=== PATIENT | male | born 1970 | race Caucasian/White ===

== ENCOUNTER 2017-01-31 13:08 | Emergency (ER) ==
[2017-01-31 13:12] VITALS: BP 132/82; TEMP 98.4; BMI 26.6
[2017-01-31] MEDS ORDERED: TETANUS DIPHTHERIA TOXOIDS IM ONE (13:21)
[2017-01-31] MEDS ORDERED: NORCO 7.5-325 PO STA (13:52)
--- NOTE | 2017-01-31 13:55 | ED.PDOC ---
General ED Provider: Dr. WAYNE CHAIDEZ-ER Chief Complaint: Fall Stated Complaint: i fell and cut my leg and i hurt my hand Time Seen by Physician: 13:10 Mode of Arrival: Walk-In Information Source: Patient Exam Limitations: No limitations Primary Care Provider: MARGARET BALTAZAR Nursing and Triage Documentation Reviewed and Agree: Yes Musculoskeletal Complaint Exam - Hand/Wrist Complaint/Exam Location of Pain: Reports: Right, Digit #4, Digit #5 Onset/Duration: 24hrs Symptoms Are: Still present Onset of Pain: Reports: Immediate Initial Severity: Mild Current Severity: Mild Location: Reports: Discrete (right 5th digit and left holland laceration) Character: Reports: Dull, Aching Alleviating: Reports: Rest Aggravating: Reports: Movement Associated Signs and Symptoms: Reports: Swelling, Bruising. Denies: Redness, Fever, Weakness, Numbness, Tingling Dominant Hand: Right Hand/Wrist Findings: Present: Swelling, Ecchymosis Tenderness: Present: Phalanx Compartment Syndrome Risk Factors: Present: Pain Differential Diagnoses: Infection, Closed Fracture Review of Systems - Review Of Systems Constitutional: Reports: No symptoms Eyes: Reports: No symptoms Ears, Nose, Mouth, Throat: Reports: No symptoms Respiratory: Reports: No symptoms Cardiac: Reports: No symptoms GI: Reports: No symptoms : Reports: No symptoms Musculoskeletal: Reports: Joint swelling, Muscle pain Skin: Reports: No symptoms Neurological: Reports: No symptoms Endocrine: Reports: No symptoms Hematologic/Lymphatic: Reports: No symptoms All Other Systems: Reviewed and Negative Past Medical History - Past Medical History Previously Healthy: Yes Endocrine: Reports: Unknown Cardiovascular: Reports: Unknown Respiratory: Reports: Unknown Hematological: Reports: Unknown Gastrointestinal: Reports: Unknown Genitourinary: Reports: Unknown Neuro/Psych: Reports: Unknown Musculoskeletal: Reports: Unknown Cancer: Reports: Unknown - Surgical History General Surgical History: Reports: Unknown - Family History Family History: Reports: Unknown - Social History Smoking Status: Current every day smoker, Heavy tobacco smoker Hx Substance Use: No Alcohol Screening: None Lives: With family - Immunizations Tetanus Shot up to Date: No Physical Exam - Physical Exam Appearance: Well-appearing, No pain distress, Well-nourished Pain Distress: Mild Eyes: CIRA, EOMI, Conjunctiva clear ENT: Ears normal, Nose normal, Oropharynx normal Neck: Supple Respiratory: Airway patent, Breath sounds clear, Breath sounds equal, Respirations nonlabored Cardiovascular: RRR, Pulses normal, No rub, No murmur GI/: Soft, Nontender, No masses, Bowel sounds normal, No Organomegaly Musculoskeletal: Limited ROM Skin: Warm Neurological: Sensation intact Psychiatric: Affect appropriate, Mood appropriate Interpretation - Radiology Interpretation Radiology Interpretation By: ED Physician Radiology Results: Positive Procedures - Laceration/Wound Repair No standard instances Wound Description: Linear Wound Length (cm): 3cm left holland Wound Explored: Clean Wound Irrigated: Yes Wound Prep: Hibiclens Wound Repaired With: Steri-strips Layer Closure?: No Sterile Dressing Applied?: Yes Splint Applied?: Yes (right finger--alum splint applied by nurse) Re-Evaluation - Re-Evaluation Time of Re-Evaluation: 13:57 Status: Improved Vital Signs Stable: Yes Pain Level: 2 Appearance: NAD Lungs: Clear Skin: Warm and Dry Neuro: Alert and Oriented X3 CV: RRR Critical Care Note - Critical Care Note Total Time (mins): 0 Course - Course Orders, Labs, Meds: Orders Category Date Time Status Splint [ED SPLINT APPLICATION] .ONCE EMERGENCY 01/31/17 13:52 Active Wound care [ED WOUND CARE] .ONCE EMERGENCY 01/31/17 13:22 Active Hydrocodone Bit/Acetaminophen [[place] 7.5-325] MEDS 01/31/17 13:52 Stat 1 tab PO ONCE STA Tetanus, Diphtheria Tox,Adult [Tetanus Diphtheria MEDS 01/31/17 13:21 Discontinued Toxoids] 0.5 ml IM .ONCE ONE FINGER(S) RIGHT MIN 2V Stat RADS 01/31/17 13:19 Taken HAND, RIGHT 3 VIEWS Stat RADS 01/31/17 13:19 Taken TIBIA/FIBULA, LEFT 2 VIEWS Stat RADS 01/31/17 13:19 Taken Medications Generic Name Dose Route Start Last Admin Trade Name Freq PRN Reason Stop Dose Admin Acetaminophen/Hydrocodone Bitart 1 tab 01/31/17 13:52 [place] 7.5-325 PO 01/31/17 13:53 ONCE STA Discontinued Medications Generic Name Dose Route Start Last Admin Trade Name Freq PRN Reason Stop Dose Admin Tetanus/Diphtheria Toxoids 0.5 ml 01/31/17 13:21 01/31/17 13:39 Tetanus Diphtheria Toxoids IM 01/31/17 13:22 0.5 ml .ONCE ONE Administration Vital Signs: Temp Pulse Resp BP Pulse Ox 01/31/17 13:09 98.4 F 76 16 132/82 97 Departure - Departure Time of Disposition: 13:57 Disposition: HOME SELF-CARE Discharge Problem: Proximal phalanx fracture of finger Qualifiers: Encounter type: initial encounter Finger: little finger Fracture type: closed Fracture alignment: nondisplaced Laterality: right Qualifier Code: (S62.646A) Nondisplaced fracture of proximal phalanx of right little finger, initial encounter for closed fracture Laceration of leg Qualifiers: Encounter type: initial encounter Laterality: left Qualifier Code: (S81.812A) Laceration without foreign body, left lower leg, initial encounter Instructions: Finger Fracture (ED), Laceration (ED), Laceration Without Closure (ED) Condition: Good Pt referred to PMD for follow-up: Yes Additional Instructions: stay in splint--norco 7.5mg q 4hrs prn pain #15--[facility] with [facility] of xrays--keep left leg wound clean and dry--keflex 500mg bid x 7days--wash with soap and water--do not apply peroxide Allergies/Adverse Reactions: Allergies Iodinated Contrast- Oral and IV Dye Adverse Reaction (Verified 01/31/17 13:12) Home Medications: Ambulatory Orders Hydrocodone Bit/Acetaminophen [[place] 7.5-325] 1 tab PO BID 01/31/17 Disposition Discussed With: Patient, Family
--- NOTE | 2017-01-31 14:01 | DI ---
Exam: Three x-rays of the right hand. Comparison: None available. Reason for exam: Fall. FINDINGS: There is a comminuted fracture of the right fifth proximal phalanx. Anatomic alignment i s relatively well maintained. Soft tissue swelling is seen adjacent the fracture site. No other fr acture or dislocation is seen. Impression: Comminuted fracture of the right proximal fifth phalanx. Report faxed at [phone] hours on 01/31/2017
--- NOTE | 2017-01-31 14:07 | DI ---
Exam: Four x-rays of the right fingers Chris: Hand x-ray performed on the same day. Reason for exam: Fall. FINDINGS: There is a minimally displaced comminuted fracture of the right fifth proximal phalanx. No other fracture or dislocation is seen. The anatomic alignment is relatively well maintained. Impression: Minimally displaced comminuted fracture of the right proximal fifth phalanx. Report faxed at [phone] hours on 01/31/2017.
--- NOTE | 2017-01-31 14:14 | DI ---
Exam: Three x-rays of the left lower extremity. Comparison: None available. Reason for exam: Fall. FINDINGS: No acute fracture or malalignment. The cortex of the left tibia and fibula appear intact . There is no unexplained calcific soft tissue densities or radiopaque retained foreign bodies. Impression: No acute fracture or dislocation is seen within the left tibia or fibula.
== END 2017-01-31 14:06 | disposition home or self-care (01) ==
LOC: ED 13:08
DX: S62.646A Nondisplaced fracture of proximal phalanx of right little finger, initial encounter for closed fracture (principal); S81.812A Laceration without foreign body, left lower leg, initial encounter; W19.XXXA Unspecified fall, initial encounter; F17.210 Nicotine dependence, cigarettes, uncomplicated
CPT/HCPCS: 90471; 99283

== ENCOUNTER 2017-05-08 08:59 | Day surgery (SDC) ==
[2017-05-08] MEDS: AK-DILATE 10% OPTH SOL OP PRN ×3 (11:30→11:40)
[2017-05-08] MEDS: TETRACAINE 0.5% UNIT-DOSE OP PRN ×3 (11:30→12:00)
[2017-05-08] MEDS: KETOROLAC 0.5% OPTH SOL OP PRN ×3 (11:30→12:00)
[2017-05-08] MEDS: CYCLOGYL 2% OPTH OP PRN ×3 (11:30→11:40)
[2017-05-08] MEDS ORDERED: LIDOCAINE 1% 20 ML MDV ID ONE (11:56)
[2017-05-08] MEDS ORDERED: BETADINE OPTH PREP OP ONE (12:14)
[2017-05-08] MEDS ORDERED: VERSED ONE (12:15)
[2017-05-08] MEDS ORDERED: TIMOPTIC 0.5% OPTH OP ONE (12:41)
[2017-05-08] MEDS ORDERED: PRED FORTE 1% OPTH SOL OP ONE (12:41)
[2017-05-08] MEDS ORDERED: OCUFEN 0.03% OPTH SOL OP ONE (12:41)
[2017-05-08] MEDS ORDERED: DIAMOX PO ONE (13:21)
[2017-05-08 13:42] VITALS: BP 138/92; TEMP 97.9
--- NOTE | 2017-05-09 08:53 | OP ---
PREOPERATIVE DIAGNOSIS: RIGHT EYE. POSTOPERATIVE DIAGNOSIS: SAME. OPERATION PHACOEMULSIFICATION ASPIRATION OF CATARACT RIGHT EYE. PLACEMENT OF POSTERIOR CHAMBER LENS. PHACO TIME 30.40 SECONDS AT 11% POWER. LENS MODEL TECPETRA [id number]. DIOPTER +18.0D. TECHNIQUE: CLEAR CORNEA. ANESTHESIA: TOPICAL ANESTHESIA W/ANESTHESIA MONITORING. OPERATIVE REPORT: Topical anesthesia consisting of Tetracaine was applied to the cornea and Xylocaine Methyl Paraben free of MFP was injected intracamerally into the anterior chamber. The patient was then brought into the operating room , prepped and draped in the usual ophthalmic manner. A lid speculum was placed and the operating microscope was used. A paracentesis was made at the 3 o' clock position. A clear corneal incision was made just out to the limbus. The anterior chamber was entered just inside the clear cornea. Viscoelastic was injected into the anterior chamber. A capsulotomy was performed with a bent # 27 gauge needle. Phacoemulsification was then performed in the posterior chamber. After completion of the phacoemulsification, residual cortical material was aspirated with the irrigation-aspiration system. The posterior capsule was polished. Viscoelastic was injected into the anterior and posterior chambers to inflate the capsular bag. Lens were placed via an Unfolder system and stabilized in the bag. Viscoelastic was removed from the anterior chamber. The wound was checked for any leakage. The four sponges were removed from the fornix. Topical antibiotic steroid and nonsteroidal drops were also applied to the cornea. A Tai shield was applied. The patient left the operating room in good condition without any complications. INTRAOPERATIVE MEDICATIONS: Xylocaine Methyl Paraben Free MPF MTDD
== END 2017-05-08 13:47 | disposition home or self-care (01) ==
LOC: SURG 08:59
PROVIDERS: ATTEND Ophthalmology
DX: H25.13 Age-related nuclear cataract, bilateral (principal)

== ENCOUNTER 2017-06-26 17:46 | Emergency (ER) ==
[2017-06-26 17:52] VITALS: BP 174/101; TEMP 98.9; BMI 27.1
--- NOTE | 2017-06-26 18:19 | ED.PDOC ---
General ED Provider: Dr. FORREST CORTEZ Chief Complaint: Finger Pain/Injury Stated Complaint: BOTH TUMBS AND WRIST HURT AFTER NEAR FALL Time Seen by Physician: 18:18 (TRIED TO PREVENT A A FALL WHILE ON A LADDER DID NOT FALL) Mode of Arrival: Walk-In Information Source: Patient Exam Limitations: No limitations Nursing and Triage Documentation Reviewed and Agree: Yes (SEEN WITH [facility] AT ALL TIMES ) Musculoskeletal Complaint Exam - Hand/Wrist Complaint/Exam Location of Pain: Reports: Right, Left, Hand, Wrist, Digit #1 Mechanism of Injury: Reports: Trauma (PULLING TYPE FORCE) Onset/Duration: TODAY Symptoms Are: Still present Initial Severity: Mild Current Severity: Mild Location: Reports: Discrete Character: Reports: Aching Alleviating: Reports: Rest Aggravating: Reports: Movement Associated Signs and Symptoms: Denies: Swelling, Redness, Bruising, Fever, Weakness, Numbness, Tingling Dominant Hand: Right Related Surgical History: Reports: None Hand/Wrist Findings: Absent: Swelling, Ecchymosis, Abnormal contour, Rotation, Ligamentous instability, Tinel's Sign, Phalen's Sign, Laceration Tenderness: Present: Radius, Ulna, Metacarpal, Phalanx Compartment Syndrome Risk Factors: Present: Pain Differential Diagnoses: Closed Fracture, Sprain, Strain Review of Systems - Review Of Systems Constitutional: Reports: No symptoms Eyes: Reports: No symptoms Ears, Nose, Mouth, Throat: Reports: No symptoms Respiratory: Reports: No symptoms Cardiac: Reports: No symptoms GI: Reports: No symptoms : Reports: No symptoms Musculoskeletal: Reports: Joint pain (PAIN) Skin: Reports: No symptoms Neurological: Reports: No symptoms Endocrine: Reports: No symptoms Hematologic/Lymphatic: Reports: No symptoms All Other Systems: Reviewed and Negative Past Medical History - Past Medical History Previously Healthy: Yes Endocrine: Reports: Unknown Cardiovascular: Reports: Unknown Respiratory: Reports: Unknown Hematological: Reports: Unknown Gastrointestinal: Reports: Unknown Genitourinary: Reports: Unknown Neuro/Psych: Reports: Unknown Musculoskeletal: Reports: Unknown Cancer: Reports: Unknown - Surgical History General Surgical History: Reports: Unknown - Family History Family History: Reports: Unknown - Social History Smoking Status: Current every day smoker, Heavy tobacco smoker Hx Substance Use: No Alcohol Screening: None Physical Exam - Physical Exam Appearance: Well-appearing, No pain distress, Well-nourished Eyes: CIRA, EOMI, Conjunctiva clear ENT: Ears normal, Nose normal, Oropharynx normal Respiratory: Airway patent, Breath sounds clear, Breath sounds equal, Respirations nonlabored Cardiovascular: RRR, Pulses normal, No rub, No murmur GI/: Soft, Nontender, No masses, Bowel sounds normal, No Organomegaly Musculoskeletal: Normal strength, ROM intact, No edema, No calf tenderness Skin: Warm, Dry, Normal color Neurological: Sensation intact, Motor intact, Reflexes intact, Cranial nerves intact, Alert, Oriented Psychiatric: Affect appropriate, Mood appropriate Critical Care Note - Critical Care Note Total Time (mins): 0 Course - Course Orders, Labs, Meds: Orders Category Date Time Status HAND, LEFT 3 VIEWS Stat RADS 06/26/17 18:16 Ordered HAND, RIGHT 3 VIEWS Stat RADS 06/26/17 18:16 Ordered WRIST, LEFT 3 VIEWS Stat RADS 06/26/17 18:16 Ordered WRIST, RIGHT 3 VIEWS Stat RADS 06/26/17 18:16 Ordered Vital Signs: Temp Pulse Resp BP Pulse Ox 06/26/17 17:46 98.9 F 96 H 20 174/101 H 96 Departure - Departure Time of Disposition: 18:19 Disposition: HOME SELF-CARE Discharge Problem: Hand pain, left, Hand pain, right, Pain in finger, Injury of finger Instructions: Wrist Sprain (ED), Finger Sprain (ED) Condition: Good Pt referred to PMD for follow-up: Yes Additional Instructions: Please call your Family Physician as soon as possible to schedule a follow-up appointment. Allergies/Adverse Reactions: Allergies Iodinated Contrast- Oral and IV Dye Adverse Reaction (Verified 06/26/17 17:52) Home Medications: Ambulatory Orders Gabapentin [Neurontin] 400 mg PO DAILY 05/08/17
--- NOTE | 2017-06-26 18:43 | DI ---
EXAM: Left hand; PA, lateral, and oblique views HISTORY: Hand injury FINDINGS: The joint spaces and bone density are maintained. No localized soft tissue abnormalities a re evident. No acute fracture or subluxation appreciated. OPINION: No acute fracture, subluxation, or localized soft tissue abnormalities.
--- NOTE | 2017-06-26 18:44 | DI ---
EXAM: Right wrist four views HISTORY: Pain COMPARISON: None FINDINGS: The bones are normal. The joints are normal. No focal soft tissue abnormality. IMPERSSION: Normal examination.
--- NOTE | 2017-06-26 18:44 | DI ---
EXAM: Left wrist; PA, lateral, and oblique views HISTORY: Left wrist injury FINDINGS: The joint spaces, bone density, and soft tissues are normal. No fracture or subluxation are detected. OPINION: No fracture or subluxation.
--- NOTE | 2017-06-26 18:49 | DI ---
EXAM: Right hand three views HISTORY: Pain COMPARISON: Hand 01/31/2017 FINDINGS: There is no acute fracture or dislocation. Healed fracture involving proximal phalanx of the fifth digit... Surrounding soft tissues are unremarkable. IMPRESSION: No acute findings.
== END 2017-06-26 19:02 | disposition home or self-care (01) ==
LOC: ED 17:46
DX: S69.92XA Unspecified injury of left wrist, hand and finger(s), initial encounter (principal); S69.91XA Unspecified injury of right wrist, hand and finger(s), initial encounter; F17.210 Nicotine dependence, cigarettes, uncomplicated; X50.9XXA Other and unspecified overexertion or strenuous movements or postures, initial encounter
CPT/HCPCS: 99283

== ENCOUNTER 2017-12-11 08:27 | Day surgery (SDC) ==
[2017-12-11] MEDS: TETRACAINE 0.5% UNIT-DOSE OP PRN ×3 (09:08→09:38)
[2017-12-11] MEDS: CYCLOGYL 2% OPTH OP PRN ×3 (09:09→09:20)
[2017-12-11] MEDS: AK-DILATE 10% OPTH SOL OP PRN ×3 (09:09→09:20)
[2017-12-11] MEDS: OCUFEN 0.03% OPTH SOL OP PRN ×3 (09:10→09:38)
[2017-12-11] MEDS ORDERED: DIAMOX PO STA (09:14)
[2017-12-11] MEDS ORDERED: LIDOCAINE 1% 20 ML MDV ID STA (09:14)
[2017-12-11] MEDS ORDERED: VERSED ONE (10:30)
[2017-12-11] MEDS ORDERED: BETADINE OPTH PREP OP ONE (10:37)
[2017-12-11] MEDS ORDERED: ADRENALIN 1:1000 SDV IR STA (10:41)
[2017-12-11] MEDS ORDERED: OCUSOFT LID SCRUB PLUS TP ONE (11:38)
[2017-12-11 15:18] VITALS: BP 115/85
[2017-12-12] MEDS ORDERED: LIDOCAINE HCL 1% SDV INJ ONE (09:11)
--- NOTE | 2017-12-12 13:27 | OP ---
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 POSTOPERATIVE DIAGNOSIS: SAME. OPERATION PHACOEMULSIFICATION ASPIRATION OF CATARACT LEFT EYE. PLACEMENT OF POSTERIOR CHAMBER LENS. PHACO TIME 23.3 SECONDS AT 9% POWER. LENS MODEL TECNIS [id number]. +19.0 DIOPTER D. TECHNIQUE: CLEAR CORNEA. ANESTHESIA: TOPICAL ANESTHESIA W/ANESTHESIA MONITORING. OPERATIVE REPORT: Topical anesthesia consisting of Tetracaine was applied to the cornea and Xylocaine Methyl Paraben free of MFP was injected intracamerally into the anterior chamber. The patient was then brought into the operating room , prepped and draped in the usual ophthalmic manner. A lid speculum was placed and the operating microscope was used. A paracentesis was made at the 3 o' clock position. A clear corneal incision was made just out to the limbus. The anterior chamber was entered just inside the clear cornea. Viscoelastic was injected into the anterior chamber. A capsulotomy was performed with a bent # 27 gauge needle. Phacoemulsification was then performed in the posterior chamber. After completion of the phacoemulsification, residual cortical material was aspirated with the irrigation-aspiration system. The posterior capsule was polished. Viscoelastic was injected into the anterior and posterior chambers to inflate the capsular bag. Lens were placed via an Unfolder system and stabilized in the bag. Viscoelastic was removed from the anterior chamber. The wound was checked for any leakage. The four sponges were removed from the fornix. Topical antibiotic steroid and nonsteroidal drops were also applied to the cornea. A Tai shield was applied. The patient left the operating room in good condition without any complications. INTRAOPERATIVE MEDICATIONS: Xylocaine Methyl Paraben Free MPF MTDD
== END 2017-12-11 11:29 | disposition home or self-care (01) ==
LOC: SURG 08:27
PROVIDERS: ATTEND Ophthalmology
DX: H25.12 Age-related nuclear cataract, left eye (principal)